=== PATIENT | female | born 2000 | race Caucasian/White ===

== ENCOUNTER 2021-02-12 17:21 | Emergency (ER) | payer OTHER, SELFPAY ==
[2021-02-12 17:27] VITALS: BP 151/88; PULSE 90; RESP 18; TEMP 37.3; O2SAT 98; BMI 30.1
[2021-02-12 18:00] LABS: Bacteria Urine None Seen
[2021-02-12 18:04] LABS: Appearance Urine UA CLOUDY; Bilirubin Urine UA NEGATIVE (NEGATIVE); Color Urine UA YELLOW; Glucose Urine UA NEGATIVE (Negative); Ketones Urine UA NEGATIVE (NEGATIVE); Leukocyte Esterase Urine UA 1+ (NEGATIVE); Nitrite Urine UA NEGATIVE (Negative); Occult Blood Urine UA 3+ (Negative); Protein Urine UA 2+ (Negative); Specific Gravity Urine UA 1.025 (1.000-1.035); Urobilinogen Urine UA 0.2 E.U./dL (0.2)
[2021-02-12 18:05] LABS: Pregnancy Test Urine Negative (Negative); pH Urine UA 6.5 (4.5-8.0)
[2021-02-12 18:10] LABS: Culture Indicated Urine Cult Not Indicated; RBC Urine 10-30/HPF (0-5/HPF); Squamous Epithelial Cell Urine 5-10 /HPF (0-5/HPF); WBC Urine 5-10/HPF (0-5/HPF)
--- NOTE | 2021-02-12 18:39 | ED.FEMALEGU ---
HPI - Female Genitourinary General Chief complaint: Urogenital-Female Stated complaint: thinks she has a UTI Time Seen by Provider: 02/12/21 18:03 Source: patient Mode of arrival: Family Vehicle Limitations: no limitations History of Present Illness HPI Narrative: Otherwise healthy 20-year-old young woman who recently became sexually active. She notes after their 1st week together that she has had increasing frequency and urgency. This has been going on for the last 5 days has not been associated with hematuria, flank pain, vaginal discharge, fevers. She has no significant chest pain palpitations or abdominal pain. She has noticed no abnormalities, lesions, sores or tender areas to her genitals. Related Data Previous Rx's Medication Instructions Recorded sulfamethoxazole-trimethoprim 1 tab PO BID #10 tab 02/12/21 [Bactrim DS] Allergies Allergy/AdvReac Type Severity Reaction Status Date / Time No Known Drug Allergies Allergy Verified 02/12/21 17:34 Review of Systems Review of Systems Narrative: Remainder of complete review of systems is otherwise unremarkable except for that included in the HPI. Patient History alcohol intake frequency: 0-2 drinks per day Substance Use Type: does not use Exam Narrative Exam Narrative: General: Healthy appearing, in no acute distress. Able to give a complete and coherent history. Well-nourished well-developed Respiratory: Lungs are clear to auscultation, no wheezing no rales no rhonchi. Full and symmetrical air movement Cardiac: Regular rate and rhythm no murmurs no bruits Abdomen: Soft, nontender, good bowel tones, no flank pain Skin: Warm and dry, no rashes Neurologic: Grossly neurologically intact with no obvious asymmetries or abnormalities Extremities: No trauma, well perfused Psych: Cooperative, appropriate insight and affect Initial Vital Signs Initial Vital Signs: Vital Signs Temperature 99.2 F 02/12/21 17:27 Pulse Rate 90 02/12/21 17:27 Respiratory Rate 18 02/12/21 17:27 Blood Pressure 151/88 H 02/12/21 17:27 Pulse Oximetry 98 02/12/21 17:27 Course Orders Ordered: ED Orders 02/12/21 19:11 Chlamydia Gonorrhea PCR -URINE Stat Urine Culture Stat Vital Signs Vital signs: Vital Signs - 8 hr 02/12/21 17:27 Temperature 99.2 F Pulse Rate 90 Respiratory Rate 18 Blood Pressure 151/88 H Pulse Oximetry 98 MDM - Female Genitourinary Medical Records Attestation: I reviewed the patient's medical records. Lab Data Labs: Lab Results 02/12/21 02/12/21 02/12/21 Range/Units 17:58 17:58 19:11 Urine Color Yellow Urine Appearance Cloudy Urine pH 6.5 (4.5-8.0) Ur Specific [place] 1.025 (1.000-1.035) Urine Protein 2+ H (Negative) Urine Glucose (UA) Negative (Negative) g/dL Urine Ketones Negative (NEGATIVE) Urine Occult Blood 3+ H (Negative) Urine Nitrate Negative (Negative) Urine Bilirubin Negative (NEGATIVE) Urine Urobilinogen 0.2 (0.2) E.U./dL Ur Leukocyte Esterase 1+ H (NEGATIVE) Urine RBC 10-30/hpf H (0-5/HPF) Urine WBC 5-10/hpf H (0-5/HPF) Ur Squamous Epith Cells 5-10 /hpf H (0-5/HPF) Urine Bacteria None seen (None) Ur Culture Indicated? Cult not indicated Urine Test Negative (Negative) Ur Chlamydia DNA (PCR) Not detected N gonorrhoeae DNA (PCR) Not detected [facility] Narrative Medical decision making narrative: 20-year-old woman with classic history and presentation consistent with urinary tract infection. Urinalysis has quite a few squamous cells and will not be reflexed for culture so specific culture is ordered. Have added gonorrhea and chlamydia to urine sample as well. In the meantime will opt to treat her for 5 days with Septra DS with presumed UTI without evidence of sepsis or pyelonephritis. At this point there is no indication for sexually transmitted infection or pelvic inflammatory disease. She is safe for home discharge Discharge Plan Departure Patient Disposition: Home Clinical Impression: Urinary tract infection Qualifiers: Urinary tract infection type: acute cystitis Hematuria presence: without hematuria Qualified Code(s): N30.00 - Acute cystitis without hematuria Instructions: DI for Urinary Tract Infection (UTI) Activity Restrictions/Additional Instructions: Thank you for coming in today Your symptoms certainly sound like you have a bladder infection. Your urinalysis was somewhat equivocal but it has been sent for culture. I am still going to treat you for a bladder infection with Bactrim DS twice a day. This is a common antibiotic to treat urinary tract infections. As we discussed, I did also check for both gonorrhea and chlamydia just to be extra safe. If you have worsening symptoms or change to symptoms, please feel free to return to the ER. Prescriptions: New sulfamethoxazole-trimethoprim [Bactrim DS] 800-160 mg tablet 1 tab PO BID Qty: 10 RF: 0
[2021-02-12 19:18] VITALS: BP 142/78; PULSE 72; RESP 16; O2SAT 98
[2021-02-12 22:22] LABS: Urine N gonorrhoeae NOT DETECTED
[2021-02-12 22:24] LABS: Urine Chlamydia NOT DETECTED
== END 2021-02-12 19:20 | disposition home or self-care (01) ==
PROVIDERS: Emergency Medicine; Emergency Provider Emergency Medicine
DX: N30.00 Acute cystitis without hematuria (principal)
CPT/HCPCS: 81001; 81025; 87077; 87086; 87186; 87491; 87591; 99282

== ENCOUNTER 2023-03-15 12:01 | Emergency (ER) | payer OTHER, SELFPAY ==
[2023-03-15 12:05] VITALS: BP 144/83; PULSE 88; RESP 18; TEMP 36.4; O2SAT 99
--- NOTE | 2023-03-15 13:06 | ED_ITS ---
HPI - URI/Sore Throat <HAMMAD Reese - Last Filed: 03/15/23 15:50> General Chief Complaint: Ear Stated Complaint: poss RT ear infection Time Seen by Provider: 03/15/23 12:46 Source: patient Mode of arrival: Ambulatory History of Present Illness HPI Narrative: This is a 22-year-old female presents emergency department complaining of 1 week of upper respiratory infection, sore throat, and progressive right ear pain. She denies fever chills but states that she is had a cough, sore throat, sinus congestion and states that her most recent COVID illness was in November of 2022. 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 She denies any difficulty breathing, denies any urinary complaints, denies any difficulty swallowing but states it is painful to swallow. Related Data Previous Rx's Medication Instructions Recorded sulfamethoxazole 800 1 tab PO BID #10 tabs 02/12/21 mg-trimethoprim 160 mg tablet (Bactrim DS) cetirizine 5 mg-pseudoephedrine ER 1 tab PO BID PRN nasal congestion 03/15/23 120 mg tablet,extended #20 tabs release,12hr (All Day Allergy-D) Allergies Allergy/AdvReac Type Severity Reaction Status Date / Time No Known Drug Allergies Allergy Verified 08/30/22 13:14 Review of Systems <HAMMAD Reese - Last Filed: 03/15/23 15:50> Review of Systems ROS Unobtainable: All systems reviewed & are unremarkable except as noted in HPI and below Patient History <HAMMAD Reese - Last Filed: 03/15/23 15:50> Social History Smoking Status: Never smoker Smoking Status: Never smoker alcohol intake frequency: a few times a month Substance Use Type: marijuana Exam <HAMMAD Reese - Last Filed: 03/15/23 15:50> Narrative Exam Narrative: Reviewed vitals signs and nursing notes. General: Pleasant, sitting upright, in no acute distress, well groomed, afebrile HEENT: symmetrical facial expressions, moist mucous membranes, neck is supple, posterior pharynx with tonsillar adenopathy 3+, mild exudate, mild sinus tenderness to palpation, nasal congestion, bilateral ear canals with cerumen, bilateral TMs are translucent, bulging with clear fluid and bubbles behind right TM, no cervical lymphadenopathy, cough with upper respiratory congestion, no wheezing or stridor CV: regular rate and rhythm, warm extremities Respiratory: normal work of breathing, without tachypnea or hypoxia. Neuro: clear speech and normal cognition, A&O x3, GCS 15, no focal motor or sensation deficits Initial Vital Signs Initial Vital Signs: Vital Signs Temperature 97.5 F L 03/15/23 12:05 Pulse Rate 88 03/15/23 12:05 Respiratory Rate 18 03/15/23 12:05 Blood Pressure 144/83 H 03/15/23 12:05 Pulse Oximetry 99 03/15/23 12:05 Oxygen Delivery Method Room Air 03/15/23 12:05 <Martín Gaming DO - Last Filed: 03/15/23 14:17> Initial Vital Signs Initial Vital Signs: Vital Signs Temperature 97.5 F L 03/15/23 12:05 Pulse Rate 88 03/15/23 12:05 Respiratory Rate 18 03/15/23 12:05 Blood Pressure 144/83 H 03/15/23 12:05 Pulse Oximetry 99 03/15/23 12:05 Oxygen Delivery Method Room Air 03/15/23 12:05 Course <HAMMAD Reese - Last Filed: 03/15/23 15:50> Orders Ordered: ED Orders 03/15/23 13:05 Throat Culture Stat 03/15/23 13:08 Strep Grp A by PCR Rapid Stat 03/15/23 13:14 Covid-19 + FLU A/B + RSV - PCR Stat Discontinued Medications Dexamethasone (Dexamethasone 10 Mg/Ml Vial) 10 mg PO NOW ONE Stop: 03/15/23 12:51 Last Admin: 03/15/23 13:12 Dose: 10 mg Documented By: KELLIE Ibuprofen (Ibuprofen 400 Mg Tablet) 800 mg PO NOW ONE Stop: 03/15/23 12:51 Last Admin: 03/15/23 13:12 Dose: 800 mg Documented By: KELLIE Vital Signs Vital signs: Vital Signs - 8 hr 03/15/23 12:05 Temperature 97.5 F L Pulse Rate 88 Respiratory Rate 18 Blood Pressure 144/83 H Pulse Oximetry 99 Oxygen Delivery Method Room Air <Martín Gaming DO - Last Filed: 03/15/23 14:17> Orders Ordered: ED Orders 03/15/23 13:05 Throat Culture Stat 03/15/23 13:08 Strep Grp A by PCR Rapid Stat 03/15/23 13:14 Covid-19 + FLU A/B + RSV - PCR Stat Discontinued Medications Dexamethasone (Dexamethasone 10 Mg/Ml Vial) 10 mg PO NOW ONE Stop: 03/15/23 12:51 Last Admin: 03/15/23 13:12 Dose: 10 mg Documented By: KELLIE Ibuprofen (Ibuprofen 400 Mg Tablet) 800 mg PO NOW ONE Stop: 03/15/23 12:51 Last Admin: 03/15/23 13:12 Dose: 800 mg Documented By: KELLIE Vital Signs Vital signs: Vital Signs - 8 hr 03/15/23 12:05 Temperature 97.5 F L Pulse Rate 88 Respiratory Rate 18 Blood Pressure 144/83 H Pulse Oximetry 99 Oxygen Delivery Method Room Air MDM - URI/Sore Throat <HAMMAD Reese - Last Filed: 03/15/23 15:50> Lab Data Labs: Lab Results 03/15/23 03/15/23 Range/Units 13:08 13:14 SARS-CoV-2 (PCR) Negative (Negative) Influenza A (RT-PCR) Flu a negative (NEGATIVE) Influenza B (RT-PCR) Flu b negative (NEGATIVE) RSV (PCR) Negative (Negative) Group A Strep (PCR) Negative (Negative) MDM Narrative Medical decision making narrative: Chief Complaint: Upper respiratory illness Independent historian: Patient Multiple etiologies for patient's symptoms considered including, but not limited to: Acute viral illness, pneumonia-bacterial or viral, croup, pertussis, asthma/reactive airway exacerbation, allergic reaction, acute otitis media, pharyngitis, bronchitis, sinusitis, postnasal drip. Respiratory PCR: COVID, influenza a, B, RSV and group a strep are negative via PCR, throat culture is pending Patient has her respiratory congestion and serous otitis. She is not taken any medications for her benefit at this time. She was given a Zyrtec with pseudoephedrine for congestion, given dexamethasone in the emergency department with ibuprofen for her symptoms, encouraged her to stay hydrated, follow up with her primary care provider as needed, encouraged her to use regular Zyrtec daily for congestion and or the pseudoephedrine version. Do not suspect underlying cardiopulmonary process. Patient is nontoxic appearing and not in need of emergent medical intervention. Patient is tolerating p.o. Recommended rest, hydration, tylenol and NSAIDS for fever and/or pain. Return to ED for worsening symptoms such as SOB, chest pain, inability to take adequate oral fluids, fever, or productive cough. Questions are addressed and there is agreement with the plan and for follow-up. I consulted with the ED attending physician Dr. Gaming as needed for higher level of care considerations and they were available for discussion and recommendations regarding plan of care and diagnostic testing. Patient is appropriate for outpatient management. <Martín Gaming, DO - Last Filed: 03/15/23 14:17> Lab Data Labs: Lab Results 03/15/23 03/15/23 Range/Units 13:08 13:14 SARS-CoV-2 (PCR) Negative (Negative) Influenza A (RT-PCR) Flu a negative (NEGATIVE) Influenza B (RT-PCR) Flu b negative (NEGATIVE) RSV (PCR) Negative (Negative) Group A Strep (PCR) Negative (Negative) Discharge Plan Departure Patient Disposition: Home Clinical Impression: Earache, Upper respiratory infection, viral Activity Restrictions/Additional Instructions: *You have been diagnosed with upper respiratory infection. Your rapid strep was negative, we will call you if it is positive on the throat culture. No indication for antibiotics at this point, this is likely a viral illness. Please use the decongestants to help treat her symptoms, take 1 tab twice a day as needed, stay hydrated, return to work when you are feeling better. I hope you feel better soon. If your COVID test is positive we will call you back. *What to do: *Please continue to take your regular medications as directed. [ x] New medication prescriptions sent to your pharmacy: [ [facility]] [ ] New medication written as a paper prescription [ ] No new medications given *Please call and schedule follow up with your primary care provider in 2-3 days, at least for an update. Let them know you were seen in the Emergency Department for the above problem. We will electronically transmit a record of today's note if your PCP or specialist is in our system. *If you do not have a primary care provider please contact [phone] to establish care with one of the [facility] primary care providers. *Return to the Emergency Department for worsening symptoms, inability to keep liquids down, fever greater than 101F, chills, or other concerning symptom. Prescriptions: New cetirizine-pseudoephedrine [All Day Allergy-D] 5-120 mg tablet extended release 12 hr 1 tab PO BID PRN (Reason: nasal congestion) Qty: 20 0RF No Action sulfamethoxazole-trimethoprim [Bactrim DS] 800-160 mg tablet 1 tab PO BID Qty: 10 0RF Referrals: Miscellaneous,Doctor, MD [Primary Care Provider] - Stand Alone Forms: Patient Portal/API <Martín Gaming, DO - Last Filed: 03/15/23 14:17> Cosign ED Attending Cosignature Attestation: Dr Gaming Co-Sign Statement: I was available for consultation during this patient's emergency department visit. This chart is signed by myself for administrative purposes only. I did not have direct contact with this patient during this visit. They were seen independently by the APC.
[2023-03-15] MEDS: DEXAMETHASONE 10 MG/ML VIAL PO (13:12)
[2023-03-15] MEDS: IBUPROFEN 400 MG TABLET 800 MG PO (13:12)
[2023-03-15 13:33] LABS: Strep Grp A by PCR Rapid Negative (Negative)
[2023-03-15 14:04] LABS: Influenza A - CEPHEID Flu A NEGATIVE (NEGATIVE); Influenza B - CEPHEID Flu B NEGATIVE (NEGATIVE); Respiratory Syncytial Virus Negative (Negative)
[2023-03-15 14:23] LABS: COVID-19 CEPHEID 4-PLEX PCR Negative (Negative)
== END 2023-03-15 14:01 | disposition home or self-care (01) ==
PROVIDERS: Emergency Provider Nurse Practitioner Critical Care Medicine
DX: J06.9 Acute upper respiratory infection, unspecified (principal); H92.01 Otalgia, right ear; Z20.822 Contact with and (suspected) exposure to COVID-19
CPT/HCPCS: 0241U; 87070; 87147; 87651; 99283; J1100

== ENCOUNTER 2023-03-31 12:56 | Emergency (ER) | payer OTHER, SELFPAY ==
[2023-03-31 13:00] VITALS: BP 151/97; PULSE 89; RESP 14; TEMP 36.8; O2SAT 98; BMI 36.8
[2023-03-31] MEDS: DEXAMETHASONE 10 MG/ML VIAL PO (13:14)
--- NOTE | 2023-03-31 13:24 | ED_ITS ---
HPI - URI/Sore Throat <Sherry Laura PA-C - Last Filed: 03/31/23 18:48> General Chief Complaint: Upper Respiratory Symptoms Stated Complaint: sent by [facility] tonsils Time Seen by Provider: 03/31/23 13:00 Source: patient Mode of arrival: Ambulatory History of Present Illness HPI Narrative: This is a 22-year-old female who presents with concern for sore throat and tonsil swelling in the setting of positive group F strep 2 weeks ago with Keflex. Patient states that she took the medication for about 5 days twice a day but then ?forgot about it because I was feeling better? last weekend 6 or 7 days ago, her symptoms started to return on Monday 5 days ago and she started taking the Keflex again she says that this improve things slightly initially but at this point she is having difficulty swallowing because it is so painful her tonsils are so swollen, she feels she is able to breathe okay but has difficulty swallowing her own spit and taking fluids. She is not had fevers or chills recently she does state that she is been feeling very tired all week. She was initially seen at the walk-in clinic earlier today and sent to the ER for further evaluation. Patient states her throat pain is quite intense she feels it is more prominent on the right side, she also states her right ear is painful. Patient denies any other complaints or concerns. She does state that she takes a steroid medication occasionally for a knee problem but has not taken this for the past month or so. She denies any history of previous tonsillitis problems. Related Data Previous Rx's Medication Instructions Recorded cetirizine 5 mg-pseudoephedrine ER 1 tab PO BID PRN nasal congestion 03/15/23 120 mg tablet,extended #20 tabs release,12hr (All Day Allergy-D) amoxicillin 500 mg-potassium 1 tab PO Q8H Bacterial pharyngitis 03/31/23 clavulanate 125 mg tablet 10 days #30 tabs (Augmentin) dexamethasone 20 mg tablet 20 mg PO DAILY Tonsillitis 5 days 03/31/23 #5 tabs Allergies Allergy/AdvReac Type Severity Reaction Status Date / Time No Known Drug Allergies Allergy Verified 03/31/23 13:02 Review of Systems <Sherry Laura PA-C - Last Filed: 03/31/23 18:48> Review of Systems Narrative: See HPI Patient History <Sherry Laura PA-C - Last Filed: 03/31/23 18:48> Social History Smoking Status: Never smoker Smoking Status: Never smoker alcohol intake frequency: a few times a month Substance Use Type: marijuana Exam <hSerry Laura PA-C - Last Filed: 03/31/23 18:48> Narrative Exam Narrative: GENERAL: 22 year old patient appears stated age. Well-developed patient, in mild distress. HEAD: Atraumatic. Normocephalic. EYES: Pupils equal round and reactive. Extraocular motions intact. No scleral ic terus. No injection or drainage. ENT: Nose without bleeding, purulent drainage. Throat with posterior pharyngeal erythema, gross bilateral tonsillar hypertrophy 4+ with bilateral exudate. Airway patent, muffled voice. Bilateral tonsillar and submandibular lymphadenopathy. Bilateral TMs are slightly injected without bulging or retraction. NECK: Trachea midline. Non tender CARDIOVASCULAR: Regular rate and rhythm without murmurs, gallops, or rubs. RESPIRATORY: Clear to auscultation. Breath sounds equal bilaterally. No wheezes, rales, or rhonchi. EXTREMITIES: No edema or joint tenderness. NEURO: AOx3. SKIN: No rash or erythema of visible areas Initial Vital Signs Initial Vital Signs: Vital Signs Temperature 98.2 F 03/31/23 13:00 Pulse Rate 89 03/31/23 13:00 Respiratory Rate 14 03/31/23 13:00 Blood Pressure 151/97 H 03/31/23 13:00 Pulse Oximetry 98 03/31/23 13:00 Oxygen Delivery Method Room Air 03/31/23 13:00 <Carolyne Jones DO - Last Filed: 03/31/23 19:19> Initial Vital Signs Initial Vital Signs: Vital Signs Temperature 98.2 F 03/31/23 13:00 Pulse Rate 89 03/31/23 13:00 Respiratory Rate 14 03/31/23 13:00 Blood Pressure 151/97 H 03/31/23 13:00 Pulse Oximetry 98 03/31/23 13:00 Oxygen Delivery Method Room Air 03/31/23 13:00 Course <Sherry Laura PA-C - Last Filed: 03/31/23 18:48> Course Course Narrative: Did speak with Dr. Murray about this patient regarding possibly getting imaging additional info does recommend soft tissue neck CT and we will also obtain labs to include CBC CMP and lactate. Unasyn given antibiotic failure with 3 worsening of her symptoms. Repeat rapid strep and throat culture are obtained today prior to antibiotics. 1320 Rechecked the patient after her antibiotics and steroids and fluids she is feeling much much better she states she feels like it is easier to swallow she is been drinking water, she also says her pain is somewhat improved. Did also discuss the patient with Dr. Wolf in agree that reasonable to send the patient out on Augmentin as well as steroids for the next 5 days. Patient lives 5 minutes from the hospital and we did review return precautions in detail. 1605 Orders Ordered: ED Orders 03/31/23 13:00 Strep Grp A by PCR Rapid Stat Throat Culture Stat 03/31/23 13:50 CBC Auto Diff [Complete Blood Count AUTO DIFF] Stat CMP [Comprehensive Metabolic Panel] Stat HCG Quantitative /Beta subunit Stat Lactate (Lactic Acid) Stat 03/31/23 14:39 CT soft tissue neck w con Stat Discontinued Medications Dexamethasone (Dexamethasone 10 Mg/Ml Vial) 10 mg PO NOW ONE Stop: 03/31/23 13:11 Last Admin: 03/31/23 13:14 Dose: 10 mg Documented By: QUINN Ampicillin Sodium/Sulbactam (Sodium 3 gm/ Sodium Chloride) 100 mls @ 200 mls/hr IV NOW ONE Stop: 03/31/23 13:19 Last Infusion: 03/31/23 14:52 Dose: 0 mls/hr Documented By: Admin: 03/31/23 14:00 Dose: 200 mls/hr Documented By: QUINN Sodium Chloride (Normal Saline 0.9%) 1,000 mls @ 1,000 mls/hr IV BOLUS ONE Stop: 03/31/23 14:17 Last Infusion: 03/31/23 15:08 Dose: 0 mls/hr Documented By: Admin: 03/31/23 13:59 Dose: 1,000 mls/hr Documented By: QUINN Ketorolac Tromethamine (Ketorolac 30 Mg/Ml Vial) 15 mg IV NOW ONE Stop: 03/31/23 13:19 Last Admin: 03/31/23 14:00 Dose: 15 mg Documented By: QUINN Vital Signs Vital signs: Vital Signs - 8 hr 03/31/23 13:00 03/31/23 14:06 03/31/23 14:08 Temperature 98.2 F Pulse Rate 89 88 Respiratory Rate 14 Blood Pressure 151/97 H 131/87 Pulse Oximetry 98 99 Oxygen Delivery Method Room Air 03/31/23 14:08 03/31/23 14:30 03/31/23 14:30 Temperature Pulse Rate 77 76 Respiratory Rate Blood Pressure 134/87 Pulse Oximetry 99 97 Oxygen Delivery Method 03/31/23 15:00 03/31/23 15:00 03/31/23 16:24 Temperature Pulse Rate 75 86 Respiratory Rate 16 18 Blood Pressure 135/77 138/88 Pulse Oximetry 98 99 Oxygen Delivery Method Room Air Room Air <Carolyne Jones DO - Last Filed: 03/31/23 19:19> Orders Ordered: ED Orders 03/31/23 13:00 Strep Grp A by PCR Rapid Stat Throat Culture Stat 03/31/23 13:50 CBC Auto Diff [Complete Blood Count AUTO DIFF] Stat CMP [Comprehensive Metabolic Panel] Stat HCG Quantitative /Beta subunit Stat Lactate (Lactic Acid) Stat 03/31/23 14:39 CT soft tissue neck w con Stat Discontinued Medications Dexamethasone (Dexamethasone 10 Mg/Ml Vial) 10 mg PO NOW ONE Stop: 03/31/23 13:11 Last Admin: 03/31/23 13:14 Dose: 10 mg Documented By: QUINN Ampicillin Sodium/Sulbactam (Sodium 3 gm/ Sodium Chloride) 100 mls @ 200 mls/hr IV NOW ONE Stop: 03/31/23 13:19 Last Infusion: 03/31/23 14:52 Dose: 0 mls/hr Documented By: Admin: 03/31/23 14:00 Dose: 200 mls/hr Documented By: QUINN Sodium Chloride (Normal Saline 0.9%) 1,000 mls @ 1,000 mls/hr IV BOLUS ONE Stop: 03/31/23 14:17 Last Infusion: 03/31/23 15:08 Dose: 0 mls/hr Documented By: Admin: 03/31/23 13:59 Dose: 1,000 mls/hr Documented By: QUINN Ketorolac Tromethamine (Ketorolac 30 Mg/Ml Vial) 15 mg IV NOW ONE Stop: 03/31/23 13:19 Last Admin: 03/31/23 14:00 Dose: 15 mg Documented By: QUINN Vital Signs Vital signs: Vital Signs - 8 hr 03/31/23 13:00 03/31/23 14:06 03/31/23 14:08 Temperature 98.2 F Pulse Rate 89 88 Respiratory Rate 14 Blood Pressure 151/97 H 131/87 Pulse Oximetry 98 99 Oxygen Delivery Method Room Air 03/31/23 14:08 03/31/23 14:30 03/31/23 14:30 Temperature Pulse Rate 77 76 Respiratory Rate Blood Pressure 134/87 Pulse Oximetry 99 97 Oxygen Delivery Method 03/31/23 15:00 03/31/23 15:00 03/31/23 16:24 Temperature Pulse Rate 75 86 Respiratory Rate 16 18 Blood Pressure 135/77 138/88 Pulse Oximetry 98 99 Oxygen Delivery Method Room Air Room Air MDM - URI/Sore Throat <Sherry Laura PA-C - Last Filed: 03/31/23 18:48> Differential Diagnosis Differential diagnosis: Likely upper respiratory infection and other (Tonsillitis, failure of oral antibiotics) Lab Data 03/31/23 13:50 03/31/23 13:50 Labs: Lab Results 03/31/23 03/31/23 03/31/23 Range/Units 13:00 13:50 13:50 WBC 10.9 (4.5-11.0) X10^3/uL RBC 4.50 (4.0-5.2) X10^6/uL Hgb 13.0 (12.0-16.0) g/dL Hct 38.3 (36-46) % MCV 85.2 (80-100) fL MCH 29.0 (26-34) PG MCHC 34.0 (30-36) % RDW 13.9 (11.6-14.8) % Plt Count 266 (150-400) X10^3/uL Neut % (Auto) 76.0 H (50-75) % Lymph % (Auto) 14.7 L (25-40) % [place] % (Auto) 7.5 (3-14) % Eos % (Auto) 1.4 L (2-4) % Baso % (Auto) 0.4 (0-2) % Neut # (Auto) 8200 H (7969-9998) /uL Lymph # (Auto) 1600 (6938-6584) /uL [place] # (Auto) 800 (0-900) /uL Eos # (Auto) 200 (0-450) /uL Baso # (Auto) 0 (0-100) /uL Sodium 137 (137-145) mmol/L Potassium 4.0 (3.4-5.1) mmol/L Chloride 102 (98-107) mmol/L Carbon Dioxide 25 (22-32) mmol/L BUN 11 (7-17) mg/dL Creatinine 0.55 (0.52-1.04) mg/dL Estimated GFR > 60 (>60) mL/min BUN/Creatinine Ratio 20.0 (6-22) Glucose 89 (70-100) mg/dL Lactate (0.7-2.1) mmol/L Calcium 9.5 (8.4-10.2) mg/dL Total Bilirubin 0.6 (0.2-1.3) mg/dL AST 35 (14-36) IU/L ALT 47 H (<35) IU/L Alkaline Phosphatase 74 (38-126) U/L Total Protein 8.8 H (6.3-8.2) g/dL Albumin 4.6 (3.5-5.0) g/dL Globulin 4.2 H (1.7-4.1) g/dL Albumin/Globulin Ratio 1.1 (1.0-2.8) HCG, Quant mIU/mL Group A Strep (PCR) Negative (Negative) 03/31/23 03/31/23 Range/Units 13:50 13:50 WBC (4.5-11.0) X10^3/uL RBC (4.0-5.2) X10^6/uL Hgb (12.0-16.0) g/dL Hct (36-46) % MCV (80-100) fL MCH (26-34) PG MCHC (30-36) % RDW (11.6-14.8) % Plt Count (150-400) X10^3/uL Neut % (Auto) (50-75) % Lymph % (Auto) (25-40) % [place] % (Auto) (3-14) % Eos % (Auto) (2-4) % Baso % (Auto) (0-2) % Neut # (Auto) (5658-8589) /uL Lymph # (Auto) (1211-0701) /uL [place] # (Auto) (0-900) /uL Eos # (Auto) (0-450) /uL Baso # (Auto) (0-100) /uL Sodium (137-145) mmol/L Potassium (3.4-5.1) mmol/L Chloride (98-107) mmol/L Carbon Dioxide (22-32) mmol/L BUN (7-17) mg/dL Creatinine (0.52-1.04) mg/dL Estimated GFR (>60) mL/min BUN/Creatinine Ratio (6-22) Glucose (70-100) mg/dL Lactate 1.0 (0.7-2.1) mmol/L Calcium (8.4-10.2) mg/dL Total Bilirubin (0.2-1.3) mg/dL AST (14-36) IU/L ALT (<35) IU/L Alkaline Phosphatase (38-126) U/L Total Protein (6.3-8.2) g/dL Albumin (3.5-5.0) g/dL Globulin (1.7-4.1) g/dL Albumin/Globulin Ratio (1.0-2.8) HCG, Quant < 2.4 mIU/mL Group A Strep (PCR) (Negative) Imaging Data CT soft tissue neck: My Impression: Agree with radiologist's interpretation Radiologist's Impression: [place] [address] CT Scan Report Signed Patient: Althea Gonzalez MR#: [id number] : 2000 Acct:[id number] Age/Sex: 22 / F Date of Service: 03/31/23 Loc: ED Accession Number: [id number] ?? Procedure: CT soft tissue neck w con Ordering Provider: Sherry Laura P.A-C PROCEDURE:? CT SOFT TISSUE NECK W CON ? INDICATIONS:? tonsillitis, muffled voice, abx failure ? TECHNIQUE:? After the administration of intravenous contrast, 3.0 mm axial sections acquired from the sella to the aortic arch.? Additional oblique axial 3.0 mm sections acquired through the pharynx.? 3 mm thick coronal and sagittal reformats were generated.? For radiation dose reduction, the following was used:? automated exposure control.? ? COMPARISON:? None. ? FINDINGS:? Image quality:? Excellent.? ? Lymph nodes:? No enlarged lymph nodes seen throughout the neck.? ? Vessels:? Visualized vasculature appears patent.? ? Neck spaces:? The oropharynx, nasopharynx, and pharynx demonstrate no mucosal lesions.? The vocal cords, false vocal cords, pyriform sinuses, epiglottis, vallecula, and tongue base all appear normal.? Extramucosal spaces, however, appear abnormal in the tonsillar pillar regions where prominent soft tissue swelling narrows this portion of the airway to a slit like morphology..? ? Glands:? The parotid and submandibular glands appear normal.? Thyroid gland appears normal where well seen.? ? Miscellaneous:? Visualized brain and orbits appear normal.? Lung apices appear clear.? Superficial soft tissues appear normal. ? Bones:? No suspicious bony lesions.? Visualized sinuses and mastoids appear unremarkable but there is bilateral maxillary sinus prominent mucosal thickening, right greater than left.? ? ? IMPRESSION:? Prominent bilateral symmetric tonsillar pillar soft tissue swelling, producing a slit like morphology of the airway in this region.? Note is made of no evidence of abscess formation.? Prominent chronic appearing sinusitis involving the maxillary sinuses, right greater than left, is superimposed. ? Dictated by: Sergei Smith M.D. on 03/31/2023 at 15:35 ? ? Approved by: Sergei Smith M.D. on 03/31/2023 at 15:38?? [facility] Narrative Medical decision making narrative: This is a 22-year-old woman who was sent from the walk-in clinic with concern for severe tonsillitis with voice change and difficulty swallowing her secretions. On exam today patient does have 4+ bilateral erythematous tonsils with bilateral exudate. She was inconsistently taking the cephalexin that she was prescribed and had a recurrence of symptoms 5 days ago with worsening pain over the last few days as well as voice change and difficulty swallowing. Patient is nontoxic appearing with unremarkable vitals and labs today, including a CBC without leukocytosis and lactate less than 2. She is given oral dexamethasone upon presentation and initial exam, she is also treated after consultation with attending physician with Unasyn as well as a L of fluids, and given Toradol 15 mg IV, a soft tissue CT is obtained of the neck which does not show evidence of abscess but does show significant swelling of the tonsils as seen on exam with narrowing of the airway due to this. Re-evaluated the patient after these treatments and she was feeling much improved, on re-examination her tonsils do appear actually to be somewhat smaller 3+ instead of 4+, she is able to swallow water well in does not feel any difficulty swallowing secretions and feels generally improved. She is placed on Augmentin for a 10 day course as well as dexamethasone for the next 5 days. Patient is given strict return precautions, she is in understanding of these, she does live 5 minutes from the hospital. Follow-up plan discussed, all questions answered. <Carolyne Jones, - Last Filed: 03/31/23 19:19> Lab Data Labs: Lab Results 03/31/23 03/31/23 03/31/23 Range/Units 13:00 13:50 13:50 WBC 10.9 (4.5-11.0) X10^3/uL RBC 4.50 (4.0-5.2) X10^6/uL Hgb 13.0 (12.0-16.0) g/dL Hct 38.3 (36-46) % MCV 85.2 (80-100) fL MCH 29.0 (26-34) PG MCHC 34.0 (30-36) % RDW 13.9 (11.6-14.8) % Plt Count 266 (150-400) X10^3/uL Neut % (Auto) 76.0 H (50-75) % Lymph % (Auto) 14.7 L (25-40) % [place] % (Auto) 7.5 (3-14) % Eos % (Auto) 1.4 L (2-4) % Baso % (Auto) 0.4 (0-2) % Neut # (Auto) 8200 H (8758-4590) /uL Lymph # (Auto) 1600 (4756-5386) /uL [place] # (Auto) 800 (0-900) /uL Eos # (Auto) 200 (0-450) /uL Baso # (Auto) 0 (0-100) /uL Sodium 137 (137-145) mmol/L Potassium 4.0 (3.4-5.1) mmol/L Chloride 102 (98-107) mmol/L Carbon Dioxide 25 (22-32) mmol/L BUN 11 (7-17) mg/dL Creatinine 0.55 (0.52-1.04) mg/dL Estimated GFR > 60 (>60) mL/min BUN/Creatinine Ratio 20.0 (6-22) Glucose 89 (70-100) mg/dL Lactate (0.7-2.1) mmol/L Calcium 9.5 (8.4-10.2) mg/dL Total Bilirubin 0.6 (0.2-1.3) mg/dL AST 35 (14-36) IU/L ALT 47 H (<35) IU/L Alkaline Phosphatase 74 (38-126) U/L Total Protein 8.8 H (6.3-8.2) g/dL Albumin 4.6 (3.5-5.0) g/dL Globulin 4.2 H (1.7-4.1) g/dL Albumin/Globulin Ratio 1.1 (1.0-2.8) HCG, Quant mIU/mL Group A Strep (PCR) Negative (Negative) 03/31/23 03/31/23 Range/Units 13:50 13:50 WBC (4.5-11.0) X10^3/uL RBC (4.0-5.2) X10^6/uL Hgb (12.0-16.0) g/dL Hct (36-46) % MCV (80-100) fL MCH (26-34) PG MCHC (30-36) % RDW (11.6-14.8) % Plt Count (150-400) X10^3/uL Neut % (Auto) (50-75) % Lymph % (Auto) (25-40) % [place] % (Auto) (3-14) % Eos % (Auto) (2-4) % Baso % (Auto) (0-2) % Neut # (Auto) (1472-5028) /uL Lymph # (Auto) (3974-0726) /uL [place] # (Auto) (0-900) /uL Eos # (Auto) (0-450) /uL Baso # (Auto) (0-100) /uL Sodium (137-145) mmol/L Potassium (3.4-5.1) mmol/L Chloride (98-107) mmol/L Carbon Dioxide (22-32) mmol/L BUN (7-17) mg/dL Creatinine (0.52-1.04) mg/dL Estimated GFR (>60) mL/min BUN/Creatinine Ratio (6-22) Glucose (70-100) mg/dL Lactate 1.0 (0.7-2.1) mmol/L Calcium (8.4-10.2) mg/dL Total Bilirubin (0.2-1.3) mg/dL AST (14-36) IU/L ALT (<35) IU/L Alkaline Phosphatase (38-126) U/L Total Protein (6.3-8.2) g/dL Albumin (3.5-5.0) g/dL Globulin (1.7-4.1) g/dL Albumin/Globulin Ratio (1.0-2.8) HCG, Quant < 2.4 mIU/mL Group A Strep (PCR) (Negative) Discharge Plan Departure Patient Disposition: Home Clinical Impression: Bacterial tonsillitis Activity Restrictions/Additional Instructions: *You have been diagnosed with bacterial tonsillitis *What to do: *Please continue to take your regular medications as directed. [2 ] New medication prescriptions sent to your pharmacy: [Augmentin antibiotic as well as steroid medication] [ ] New medication written as a paper prescription [ ] No new medications given *Please follow up with your primary care provider in 2-3 days, call for an appointment. Let them know you were seen in the Emergency Department and that we ask that you be seen in follow up. We will electronically transmit a record of today's note if your PCP is in our system. We already talked about strict return precautions if you develop fevers increased swelling or pain in your throat inability to swallow or any difficulty breathing please make sure that you call 911 or present to the emergency department. I suspect he will do well we did give you some strong antibiotics today in the ER as well as some steroid medicine you do need to make sure you take all of your antibiotics as prescribed as well as the steroid medication for the next 5 days to help reduce the swelling of your tonsils and take care of this infection. We are still waiting on your throat culture results although I suspect this is likely the same bacteria that cause your problem originally a few weeks ago. You can also consider seeing an Ear Nose and Throat provider for re-evaluation and follow-up. *If you do not have a primary care provider please contact the [facility] Resource line at [phone]. They will ask some questions about your medical history and help get you set up with a doctor in the community. *Return to Emergency Department if you should have any new, worsening or concerning symptoms, such as [fever greater than 101 F, shaking chills, worsening pain, persistent vomiting or other bothersome symptoms] Prescriptions: New amoxicillin-pot clavulanate [Augmentin] 500-125 mg tablet 1 tab PO Q8H 10 Days Qty: 30 0RF dexamethasone 20 mg tablet 20 mg PO DAILY 5 Days Qty: 5 0RF No Action cetirizine-pseudoephedrine [All Day Allergy-D] 5-120 mg tablet extended release 12 hr 1 tab PO BID PRN (Reason: nasal congestion) Qty: 20 0RF Referrals: Peterson Brown MD [Physician] - Miscellaneous,MD Alicia [Primary Care Provider] - Stand Alone Forms: Patient Portal/API <Carolyne Jones DO - Last Filed: 03/31/23 19:19> Cosign ED Attending Coseloinaature Attestation: I was immediately available in the department for consultation. Documentation has been reviewed. Case was discussed, imaging reviewed. All questions answered.
[2023-03-31 13:37] LABS: Strep Grp A by PCR Rapid Negative (Negative)
[2023-03-31] MEDS: SODIUM CHLORIDE 0.9% 1,000 ML 1000 ML IV (13:59)
[2023-03-31] MEDS: KETOROLAC 30 MG/ML VIAL 15 MG IV (14:00)
[2023-03-31] MEDS: AMPICILLIN/SULBACTAM 3 GM 3 GM in SODIUM CHLORIDE 0.9% 100 ML IV (14:00)
[2023-03-31 14:06] VITALS: PULSE 88; O2SAT 99
[2023-03-31 14:06] LABS: Add Manual Diff / Slide Review NO; Basophils Absolute Auto 0 /uL (0-100); Basophils Percent Auto 0.4 % (0-2); Eosinophils Absolute Auto 200 /uL (0-450); Eosinophils Percent Auto 1.4 % (2-4); Hematocrit 38.3 % (36-46); Lymphocytes Absolute Auto 1600 /uL (1100-4500); Lymphocytes Percent Auto 14.7 % (25-40); Mean Corpuscular Volume 85.2 fL (80-100); Monocytes Absolute Auto 800 /uL (0-900); Monocytes Percent Auto 7.5 % (3-14); Neutrophils Absolute Auto 8200 /uL (1500-7000); Platelet Count 266 X10^3/uL (150-400); Red Cell Distribution Width 13.9 % (11.6-14.8); White Blood Cell Count 10.9 X10^3/uL (4.5-11.0)
[2023-03-31 14:08] VITALS: BP 131/87; PULSE 77; O2SAT 99
[2023-03-31 14:23] LABS: Alanine Aminotransferase 47 IU/L (<35); Albumin 4.6 g/dL (3.5-5.0); Albumin Globulin Ratio 1.1 (1.0-2.8); Alkaline Phosphatase 74 U/L (38-126); Aspartate Aminotransferase 35 IU/L (14-36); Bilirubin Total 0.6 mg/dL (0.2-1.3); Blood Urea Nitrogen 11 mg/dL (7-17); Calcium 9.5 mg/dL (8.4-10.2); Carbon Dioxide 25 mmol/L (22-32); Chloride 102 mmol/L (98-107); Estimated Glomerular Filt Rate > 60 mL/min (>60); Globulin 4.2 g/dL (1.7-4.1); Glucose 89 mg/dL (70-100); HEMOLYSIS 17 (0-50); Sodium 137 mmol/L (137-145); Total Protein 8.8 g/dL (6.3-8.2)
[2023-03-31 14:30] VITALS: BP 134/87; PULSE 76; O2SAT 97
[2023-03-31 14:37] LABS: HCG Quantitative /Beta subunit < 2.4 mIU/mL
--- NOTE | 2023-03-31 14:39 | DI.CT.S_ITS ---
PROCEDURE: CT SOFT TISSUE NECK W CON INDICATIONS: tonsillitis, muffled voice, abx failure TECHNIQUE: After the administration of intravenous contrast, 3.0 mm axial sections acquired from the sella to the aortic arch. Additional oblique axial 3.0 mm sections acquired through the pharynx. 3 mm thick coronal and sagittal reformats were generated. For radiation dose reduction, the following was used: automated exposure control. COMPARISON: None. FINDINGS: Image quality: Excellent. Lymph nodes: No enlarged lymph nodes seen throughout the neck. Vessels: Visualized vasculature appears patent. Neck spaces: The oropharynx, nasopharynx, and pharynx demonstrate no mucosal lesions. The vocal cords, false vocal cords, pyriform sinuses, epiglottis, vallecula, and tongue base all appear normal. Extramucosal spaces, however, appear abnormal in the tonsillar pillar regions where prominent soft tissue swelling narrows this portion of the airway to a slit like morphology.. Glands: The parotid and submandibular glands appear normal. Thyroid gland appears normal where well seen. Miscellaneous: Visualized brain and orbits appear normal. Lung apices appear clear. Superficial soft tissues appear normal. Bones: No suspicious bony lesions. Visualized sinuses and mastoids appear unremarkable but there is bilateral maxillary sinus prominent mucosal thickening, right greater than left. IMPRESSION: Prominent bilateral symmetric tonsillar pillar soft tissue swelling, producing a slit like morphology of the airway in this region. Note is made of no evidence of abscess formation. Prominent chronic appearing sinusitis involving the maxillary sinuses, right greater than left, is superimposed. Dictated by: Sergei Smith M.D. on 03/31/2023 at 15:35 Approved by: Sergei Smith M.D. on 03/31/2023 at 15:38
[2023-03-31 15:00] VITALS: BP 135/77; PULSE 75; RESP 16; O2SAT 98
[2023-03-31 16:24] VITALS: BP 138/88; PULSE 86; RESP 18; O2SAT 99
== END 2023-03-31 16:24 | disposition home or self-care (01) ==
PROVIDERS: Emergency Provider Student in an Organized Health Care Education/Training Program
DX: J03.80 Acute tonsillitis due to other specified organisms (principal)
CPT/HCPCS: 36415; 70491; 80053; 83605; 84702; 85025; 87070; 87651; 96365; 96375; 99284; J0295; J1100; J1885; Q9967

== ENCOUNTER → 2023-09-01 15:36 | Outpatient (CLI) | payer OTHER, SELFPAY ==
[2023-09-01 18:07] LABS: Add Manual Diff / Slide Review NO; Basophils Absolute Auto 0 /uL (0-100); Basophils Percent Auto 0.4 % (0-2); Eosinophils Absolute Auto 100 /uL (0-450); Eosinophils Percent Auto 0.8 % (2-4); Hematocrit 33.6 % (36-46); Hemoglobin 11.9 g/dL (12.0-16.0); Lymphocytes Absolute Auto 1800 /uL (1100-4500); Lymphocytes Percent Auto 19.9 % (25-40); Mean Corpuscular HGB Conc 35.4 % (30-36); Mean Corpuscular Hemoglobin 30.3 PG (26-34); Mean Corpuscular Volume 85.4 fL (80-100); Monocytes Absolute Auto 500 /uL (0-900); Monocytes Percent Auto 5.6 % (3-14); Neutrophils Absolute Auto 6500 /uL (1500-7000); Neutrophils Percent Auto 73.3 % (50-75); Platelet Count 239 X10^3/uL (150-400); Red Blood Cell Count 3.93 X10^6/uL (4.0-5.2); Red Cell Distribution Width 13.7 % (11.6-14.8); White Blood Cell Count 8.9 X10^3/uL (4.5-11.0)
[2023-09-02 15:10] LABS: Varicella IgG Antibody 247 index (Immune >165)
[2023-09-03 07:37] LABS: RPR Screen Non Reactive (Non Reactive)
[2023-09-04 19:56] LABS: HIV 1 & 2 Ab/Ag 4th Gen Combo NEGATIVE (NEGATIVE); Hep C Virus Ab w/Reflex Quant NEGATIVE s/c (NEGATIVE); Hepatitis B Surface Antigen NEGATIVE s/c (NEGATIVE); Rubella Antibody IgG 33.3 IU/mL (>15)
== END ==
PROVIDERS: PCP Registered Nurse Diabetes Educator; Referring Provider Student in an Organized Health Care Education/Training Program; Visit Provider Student in an Organized Health Care Education/Training Program
DX: Z34.00 Encounter for supervision of normal first pregnancy, unspecified trimester (principal)
CPT/HCPCS: 36415; 80055; 86787; 86803; 86850; 86900; 86901; 87389

== ENCOUNTER → 2023-10-06 16:27 | Outpatient (CLI) | payer OTHER, SELFPAY ==
--- NOTE | 2023-10-06 16:28 | DI.US.S_ITS ---
PROCEDURE: US OB >= 14 WEEKS FETUS INDICATIONS: Anatomy Scan OUTSIDE/PRIOR DATING DATA: Last menstrual period (LMP): 05/16/2023. LMP-based estimated date of delivery (CANDICE): 02/20/2024. First dating scan (date and location): 08/04/2023 at . Estimated date of delivery (CANDICE) from first dating scan: 02/23/2024. The calculations are made using the working CANDICE of 02/20/2024. TECHNIQUE: Real-time scanning was performed of the fetus, with image documentation and biometric measurements. COMPARISON: [facility], , OB <= 14 WEEKS FETUS, 08/04/2023, 15:39. [facility], , OB LIMITED, 09/19/2023, 21:06. FINDINGS: General: A single living intrauterine gestation is present. Presentation: Cephalic. Placenta: Placental position is anterior, without previa. Amniotic fluid index: 13.9 cm, normal range is 5-24 cm. Single deepest vertical pocket is 3.8 cm. heart rate: 168 beats per minute. Maternal cervical canal: 4.1 cm long. Normal lower limit is 2.5 cm. biometrics: Biparietal diameter: 21 weeks 0 day Head circumference: 20 weeks 1 day Abdominal circumference: 20 weeks 3 days Femur length: 20 weeks 1 day Clinically estimated gestational age: 20 weeks 3 days Composite gestational age from present scan: 20 weeks 3 days Estimated weight and percentile: 346 g; 39% for gestational age. Anatomic survey: Neuro: Ventricles are non-dilated at less than 10 mm. Cisterna magna is normal at 3-11 mm. Cerebellum is normal in size and morphology. Nuchal skin fold: Normal at less than 6 mm between 14-21 weeks gestational age. Face: Nose and lips, facial profile are normal. Spine: No evidence for spina bifida. Heart: 4-chambered heart is present, with normal ventricular outflow tracts. Diaphragm: Diaphragm is intact. Stomach: Left-sided stomach is present. Kidneys: No hydronephrosis. Normal is less than 5 mm in 2nd trimester, less than 7 mm in 3rd trimester. Cord: 3-vessel cord has orthotopic insertion. Bladder: Normal in size. Extremities: All 4 extremities identified. IMPRESSION: 1. A single living intrauterine gestation with appropriate interval growth. 2. Normal anatomic survey. We strive to produce accurate, complete, and clear reports of imaging services. To assist us in improving patient care, this report was composed using standard report templates and voice recognition software. Therefore, it may contain abnormal punctuation, insertions and/or omissions. Occasional wrong-word or sound-alike substitutions may occur. Though we review the report and make efforts to correct it, we do recommend that the report be read carefully in proper context to recognize any text inaccuracies. Dictated by: Kristan Taylor M.D. on 10/08/2023 at 17:33 Approved by: Kristan Taylor M.D. on 10/08/2023 at 17:36
== END ==
PROVIDERS: PCP Registered Nurse Diabetes Educator; Referring Provider Student in an Organized Health Care Education/Training Program; Visit Provider Student in an Organized Health Care Education/Training Program
DX: Z3A.20 20 weeks gestation of pregnancy (principal); Z36.89 Encounter for other specified antenatal screening
CPT/HCPCS: 76811

== ENCOUNTER → 2023-10-06 17:30 | Outpatient (CLI) | payer OTHER, SELFPAY ==
[2023-10-10 21:07] LABS: AFP Value 65.2 ng/mL (.); Gest Age on Col Date 20.4 weeks (.); Insulin Dep Diabetes No (.); OSBR Risk 1IN 4034 (.); Results Report (.); Test Results *Screen Negative* (.)
== END ==
PROVIDERS: PCP Registered Nurse Diabetes Educator; Referring Provider Student in an Organized Health Care Education/Training Program; Visit Provider Student in an Organized Health Care Education/Training Program
DX: Z36.89 Encounter for other specified antenatal screening (principal); Z3A.20 20 weeks gestation of pregnancy
CPT/HCPCS: 36415; 76811; 82105

== ENCOUNTER → 2023-11-22 08:09 | Outpatient (CLI) | payer OTHER, SELFPAY ==
[2023-11-22 09:38] LABS: Hematocrit 34.9 % (36-46); Hemoglobin 12.1 g/dL (12.0-16.0)
[2023-11-22 10:41] LABS: GTT (PREG) 1 Hour PP 50gm Dose 103 mg/dL (76-139)
== END ==
LOC: LAB 08:10
PROVIDERS: PCP Registered Nurse Diabetes Educator; Referring Provider Student in an Organized Health Care Education/Training Program; Visit Provider Student in an Organized Health Care Education/Training Program
DX: Z34.02 Encounter for supervision of normal first pregnancy, second trimester (principal); Z3A.26 26 weeks gestation of pregnancy
CPT/HCPCS: 36415; 82950; 85014; 85018; 86850; 87086